=== PATIENT | female | born 1960 | race Caucasian/White ===

== ENCOUNTER 2019-04-16 14:23 | Emergency (ER) | payer OTHER ==
[2019-04-16 15:22] VITALS: BP 128/76; TEMP 97.6; BMI 28.3
[2019-04-16 16:27] VITALS: PULSE 70
--- NOTE | 2019-04-16 17:06 | PDOC ---
Documentation entered by Grace Sage SCRIBE, acting as scribe for Benjamin Khan MD. Benjamin Khan MD: This documentation has been prepared by the Alona adam Adrianna, SCRIBE, under my direction and personally reviewed by me in its entirety. I confirm that the documentation accurately reflects all work, treatment, procedures, and medical decision making performed by me. History of Present Illness - General Chief Complaint: Pain Stated Complaint: LEG SWELLING - History of Present Illness Initial Comments: The patient is a 58 year old female, with a significant PMH of HTN, ovarian cysts, liver cirrhosis (secondary to EtOH use, but liver is still functioning) and prior neuropathy of the right thigh, who presents to the ED for evaluation of right LE pain for 1 month. Patient complains of progressively worsening anterior right thigh pain, which she notes feels swollen and is extremely sensitive to touch. She endorses some associated right hip pain, but denies any pain in the bilateral hands or feet. She reports having neuropathy of this thigh in the past, but notes her only complaint at that time was numbness and tingling. Patient saw her PCP this morning for the pain as it has not subsided, and was advised to come to the ED for a doppler to rule out DVT. Patient denies any other complaints at this time. Allergies: Dolobid, diflunisal, ondansetron Surgical History: Ovarian cyst removal, appendectomy Social History: Current everyday smoker (10 cigarettes per day). Occasional EtOH use. Denies illicit drug use. PCP: Dr. Oneal Past History - Past Medical History Allergies/Adverse Reactions: Allergies Allergy/AdvReac Type Severity Reaction Status Date / Time diflunisal [From Dolobid] Allergy Unknown Verified 04/16/19 15:10 ondansetron Allergy Unknown Verified 04/16/19 15:10 Home Medications: Ambulatory Orders Buprenorphine/Naloxone [Suboxone 2Mg/0.5MG Sl Film -] 2 combo SL BID 04/16/19 Diazepam [Valium] 5 mg PO Q8H 04/16/19 Losartan Potassium 50 mg PO BID 04/16/19 Mirtazapine 15 mg PO HS 04/16/19 Sertraline HCl [Zoloft] 100 mg PO DAILY 04/16/19 Disorders: Yes (OVARIAN CYSTS) HTN: Yes - Surgical History Abdominal Surgery: Yes (FOR OVARIAN CYSTS) Appendectomy: Yes - Suicide/Smoking/Psychosocial Hx Smoking Status: Yes Smoking History: Current every day smoker Number of Cigarettes Smoked Daily: 10 Review of Systems - Review of Systems Comments:: GENERAL/CONSTITUTIONAL: No fever or chills. No weakness. HEAD, EYES, EARS, NOSE AND THROAT: No change in vision. No ear pain or discharge. No sore throat. CARDIOVASCULAR: No chest pain or shortness of breath. RESPIRATORY: No cough, wheezing, or hemoptysis. GASTROINTESTINAL: No nausea, vomiting, diarrhea or constipation. GENITOURINARY: No dysuria, frequency, or change in urination. MUSCULOSKELETAL: +Right anterior thigh pain, which feels swollen and is extremely sensitive to touch. +Associated right hip pain. No neck or back pain. SKIN: No rash NEUROLOGIC: No headache, vertigo, loss of consciousness, or change in strength/ sensation. ENDOCRINE: No increased thirst. No abnormal weight change. HEMATOLOGIC/LYMPHATIC: No anemia, easy bleeding, or history of blood clots. ALLERGIC/IMMUNOLOGIC: No hives or skin allergy. *Physical Exam - Vital Signs Last Vital Signs Temp Pulse Resp BP Pulse Ox 97.6 F 73 16 128/76 94 L 04/16/19 14:53 04/16/19 14:53 04/16/19 14:53 04/16/19 14:53 04/16/19 14:53 - Physical Exam Comments: GENERAL: Awake, alert, and fully oriented, in no acute distress HEAD: No signs of trauma EYES: PERRLA, EOMI, sclera anicteric, conjunctiva clear ENT: Auricles normal inspection, hearing grossly normal, nares patent, oropharynx clear without exudates. Moist mucosa NECK: Normal ROM, supple, no lymphadenopathy, JVD, or masses LUNGS: Breath sounds equal, clear to auscultation bilaterally. No wheezes, and no crackles HEART: Regular rate and rhythm, normal S1 and S2, no murmurs, rubs or gallops ABDOMEN: Soft, nontender, normoactive bowel sounds. No guarding, no rebound. No masses EXTREMITIES: +Right LE hyperesthesia in the distribution of the femoral nerve. There is no posterior calf or thigh tenderness or swelling. No edema, no masses palpated. No sensory or motor deficits to the bilateral lower extremities. Remained of the neurological exam intact. Normal range of motion, no edema. No clubbing or cyanosis. No cords, erythema. NEUROLOGICAL: +Right LE hyperesthesia in the distribution of the femoral nerve. There is no posterior calf or thigh tenderness or swelling. No edema, no masses palpated. No sensory or motor deficits to the bilateral lower extremities. Remained of the neurological exam intact. Cranial nerves II through XII grossly intact. Normal speech, normal gait SKIN: Warm, Dry, normal turgor, no rashes or lesions noted. ED Treatment Course - RADIOLOGY Radiology Studies Ordered: Category Date Time Status DUPLEX VASCUL US-1 LEG [US] Stat Ultrasound 04/16/19 15:35 Taken Radiograph Interpretation: EXAM#: TYPE/EXAM: RESULT: [id number] US/DUPLEX VASCUL US-1 LEG Evaluate for pain and swelling Impression: There is no evidence of deep venous thromboses in the right lower extremity. 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 No posterior swelling or tenderness, no dilated vasculature which might suggest DVT , Duplex vascular ultrasound is negative Lyrica was suggested for the neuropathy, but the patient declined, preferring to discuss any new medication with her liver specialist. She agrees to try a lidocaine patch and uses Motrin when the pain gets severe. Discharge fully ambulatory and in no obvious acute distress to follow-up as directed *DC/Admit/Observation/Transfer Diagnosis at time of Disposition: Femoral neuropathy Qualifiers: Laterality: right Qualified Code(s): G57.21 - Lesion of femoral nerve, right lower limb - Discharge Dispostion Disposition: HOME Condition at time of disposition: Stable Decision to Admit order: No - Referrals Referrals: Sampson Oneal MD [Primary Care Provider] - Jeferson Cisneros MD [Staff Physician] - - Patient Instructions Printed Discharge Instructions: DI for Peripheral Neuropathy Additional Instructions: Motrin, lidocaine patch, discuss using Lyrica with your liver specialist. Follow-up with neurologist as directed. - Post Discharge Activity
== END 2019-04-16 16:27 | disposition home or self-care (01) ==
LOC: FER 14:23
DX: G57.21 Lesion of femoral nerve, right lower limb (principal); I10 Essential (primary) hypertension; F17.210 Nicotine dependence, cigarettes, uncomplicated
CPT/HCPCS: 93971-TC; 99282-25